=== PATIENT | male | born 1995 | race African-American/Black ===

== ENCOUNTER 2025-08-28 18:14 | Emergency (ER) | payer OTHER, BC ==
[~2025-08-28] VITALS: Ht 175.3 cm; Wt 127.0 kg
[2025-08-28 18:27] VITALS: TEMP 36.9; O2SAT 99
[2025-08-28] MEDS: ACETAMINOPHEN 500MG TABLET PO ONE (19:50)
[2025-08-28] MEDS: METOCLOPRAMIDE HCL 10MG TABLET PO ONE (19:50)
[2025-08-28 22:10] VITALS: BP 126/69; PULSE 77; RESP 14; O2SAT 100
== END 2025-08-28 22:12 | disposition home or self-care (01) ==
LOC: ER 18:14
DX: S13.4XXA Sprain of ligaments of cervical spine, initial encounter (principal); E11.9 Type 2 diabetes mellitus without complications; Z87.820 Personal history of traumatic brain injury; V43.52XA Car driver injured in collision with other type car in traffic accident, initial encounter; Y92.410 Unspecified street and highway as the place of occurrence of the external cause; Y93.89 Activity, other specified; Y99.8 Other external cause status
CPT/HCPCS: 99284; 70450; J8597